=== PATIENT | male | born 1970 | race Asian ===

== ENCOUNTER 2022-05-05 10:37 | Day surgery (SDC) | payer OTHER ==
[~2022-05-05] VITALS: Ht 170.2 cm; Wt 74.8 kg
[2022-05-05] MEDS ORDERED: diphenhydrAMINE 50 MG/ML VIAL ONE (10:50)
[2022-05-05] MEDS ORDERED: fentaNYL citrate 0.05 MG/ML VIAL ONE (10:50)
[2022-05-05] MEDS ORDERED: MIDAZOLAM 5 MG/5 ML VIAL ONE (10:50)
[2022-05-05] MEDS: MIDAZOLAM 2 MG/2 ML VIAL IVP ONE (11:18)
[2022-05-05] MEDS: fentaNYL citrate 0.05 MG/ML VIAL IVP ONE (11:19)
[2022-05-05] MEDS: LIDOCAINE 2% 100 MG/5 ML UJET TP ONE (11:20)
== END 2022-05-05 12:24 | disposition home or self-care (01) ==
LOC: MDS 10:37 → MMU 10:37 → MDS 12:24
PROVIDERS: ATTEND Internal Medicine Gastroenterology
DX: Z12.11 Encounter for screening for malignant neoplasm of colon (principal); K64.8 Other hemorrhoids; Z86.010 Personal history of colon polyps; I10 Essential (primary) hypertension; Z20.822 Contact with and (suspected) exposure to COVID-19; Z79.899 Other long term (current) drug therapy
CPT/HCPCS: 45378; 87426; J2250; J3010; J1200